=== PATIENT | male | born 1975 | race Caucasian/White ===

== ENCOUNTER 2020-02-24 21:45 | Emergency (ER) | payer OTHER ==
[~2020-02-24] VITALS: Ht 175.3 cm; Wt 95.5 kg
[2020-02-24] MEDS ORDERED: RITALIN LA40 M1 PO (21:58)
[2020-02-25] MEDS ORDERED: NORCO 325 MG-51 TA1 PO (00:20)
[2020-02-25] MEDS ORDERED: CEPHALEXIN500 M1 PO (00:20)
[2020-02-25 00:45] VITALS: BP 142/97
== END 2020-02-25 00:45 | disposition home or self-care (01) ==
LOC: ED 21:45
DX: S01.511A Laceration without foreign body of lip, initial encounter (principal); S01.411A Laceration without foreign body of right cheek and temporomandibular area, initial encounter; S63.501A Unspecified sprain of right wrist, initial encounter; W10.8XXA Fall (on) (from) other stairs and steps, initial encounter; Y92.009 Unspecified place in unspecified non-institutional (private) residence as the place of occurrence of the external cause
CPT/HCPCS: J1885

== ENCOUNTER → 2020-03-12 | Outpatient (CLI) | payer OTHER ==
[2020-02-25 00:45] VITALS: BP 142/97
[~2020-03-12] MED LIST: CEPHALEXIN500 M1 PO; NORCO 325 MG-51 TA1 PO; RITALIN LA40 M1 PO
== END ==
LOC: RAD 10:00
DX: S09.93XD Unspecified injury of face, subsequent encounter (principal); S05.11XD Contusion of eyeball and orbital tissues, right eye, subsequent encounter; K04.5 Chronic apical periodontitis; K02.9 Dental caries, unspecified

== ENCOUNTER → 2022-01-11 | Outpatient (CLI) | payer OTHER ==
[~2022-01-11] MED LIST changes: +ACETAMINOP-CODEI5 ML; +MELOXICAM15 MG; +WELLBUTRIN XL300 M1
== END ==
LOC: RAD 10:00
DX: N28.1 Cyst of kidney, acquired (principal); N20.0 Calculus of kidney
CPT/HCPCS: Q9967

== ENCOUNTER 2024-06-09 01:05 | Emergency (ER) | payer SELFPAY ==
[~2024-06-09] VITALS: Ht 172.7 cm; Wt 95.5 kg
[2024-06-09 01:13] VITALS: BP 153/102
[2024-06-09] MEDS ORDERED: LEXAPRO5 MG PO (01:18)
== END 2024-06-09 01:50 | disposition left against medical advice (07) ==
LOC: ED 01:05
DX: M79.644 Pain in right finger(s) (principal)

== ENCOUNTER 2024-06-09 13:24 | Emergency (ER) | payer SELFPAY ==
[~2024-06-09] VITALS: Ht 167.6 cm; Wt 95.5 kg
[~2024-06-09 13:24] MED LIST changes: +LEXAPRO5 MG PO
[2024-06-09 14:23] VITALS: BP 170/80
== END 2024-06-09 14:28 | disposition home or self-care (01) ==
LOC: ED 13:24
DX: S62.521A Displaced fracture of distal phalanx of right thumb, initial encounter for closed fracture (principal); F17.210 Nicotine dependence, cigarettes, uncomplicated; W22.8XXA Striking against or struck by other objects, initial encounter

== ENCOUNTER → 2024-06-27 | Outpatient (CLI) | payer SELFPAY | LOC: RAD 09:41 | DX: S62.524D Nondisplaced fracture of distal phalanx of right thumb, subsequent encounter for fracture with routine healing (principal); X58.XXXD Exposure to other specified factors, subsequent encounter ==